=== PATIENT | female | born 1990 | race Caucasian/White ===

== ENCOUNTER 2022-01-23 06:38 | Emergency (ER) | payer OTHER ==
[~2022-01-23] VITALS: Ht 175.3 cm; Wt 54.4 kg
== END 2022-01-23 11:26 | disposition home or self-care (01) ==
LOC: ER 06:38
DX: R19.7 Diarrhea, unspecified (principal)

== ENCOUNTER 2024-03-12 09:23 | Outpatient (CLI) | payer OTHER | END 2024-03-12 09:32 | disposition home or self-care (01) | LOC: RX STUDY 09:23 | PROVIDERS: ATTEND Obstetrics & Gynecology Reproductive Endocrinology | DX: N93.0 Postcoital and contact bleeding (principal) ==